=== PATIENT | male | born 1975 | race African-American/Black ===

== ENCOUNTER 2021-04-07 13:51 | Emergency (ER) | payer MEDICAID ==
[~2021-04-07] VITALS: Ht 180.3 cm; Wt 102.5 kg
[2021-04-07 15:10] VITALS: BP 127/97
== END 2021-04-07 16:27 | disposition home or self-care (01) ==
LOC: ER 13:51
DX: L08.9 Local infection of the skin and subcutaneous tissue, unspecified (principal)

== ENCOUNTER 2025-02-14 16:05 | Emergency (ER) | payer MEDICAID, OTHER ==
[~2025-02-14] VITALS: Ht 180.3 cm; Wt 77.9 kg
[2025-02-14 16:36] VITALS: BP 123/93; PULSE 63; RESP 20; TEMP 98.2; O2SAT 98
[2025-02-14] MEDS ORDERED: MECL12.586 PO (17:46)
--- NOTE | 2025-02-14 17:46 | ED.PDOC ---
HPI (NEURO) HPI Comments 49 year old M presents for URI symptoms with intermittent dizziness Symptoms started 3-4 days ago Denies fevers chills night sweats unintentional weight loss Denies persistent chest pain, shortness of breath, leg swelling Denies history of asthma nor any breathing conditions Denies history of pneumonia Denies recent international travel Chief Complaint: Flu like Time Seen by MD: 16:28 Reviewed Notes: Nurses Notes, Medications, Allergies Information Source: Patient Mode of Arrival: Ambulatory Past Medical History PAST MEDICAL HISTORY: Denies Surgical History: Denies all surgeries Family History Family History: Reviewed,noncontributory to illness Social History Smoker: Non-Smoker Lives In: Home All Other Systems: Reviewed and Negative (Per HPI) Physical Exam General Appearance: No Apparent Distress, Normal HEENT: Normal ENT Inspection, Pharynx Normal, TMs Normal Neck: Full Range of Motion, Non-Tender, Normal, Normal Inspection Respiratory: Chest Non-Tender, Lungs Clear, No Accessory Muscle Use, No Respiratory Distress, Normal Breath Sounds Cardiovascular: No Edema, No JVD, No Murmur, No Gallop, Normal Peripheral Pulses, Regular Rate/Rhythm Breast Exam: Deferred Gastrointestinal: No Organomegaly, Non Tender, No Pulsatile Mass, Normal Bowel Sounds, Soft Genitalia: Deferred Pelvic: Deferred Rectal: Deferred Extremities: No calf tenderness, Normal capillary refill, Normal inspection, Normal range of motion, Non-tender, No pedal edema Musculoskeletal : Apperance: Normal Neurologic: Alert, advertising account manager II-XII nml as Tested, No Motor Deficits, Normal Affect, Normal Mood, No Sensory Deficits Cerebellar Function: Normal Reflexes: Normal Skin: Dry, Normal Color, Warm Lymphatic: No Adenopathy Was a procedure done? Was a procedure done?: No Differential Diagnosis (SZ) Seizure: Other X-Ray, Labs, Meds, VS Vital Signs Date Time Temp Pulse Resp B/P (MAP) Pulse Ox O2 Delivery O2 Flow Rate FiO2 02/14/25 16:36 98.2 63 20 123/93 (103) 98 98.2 02/14/25 16:29 98.2 63 20 123/93 (103) 98 98.2 02/14/25 16:18 64 Lab Test 02/14/25 16:22 Range/Units POC Glucose 115 H 70-106 mg/dl X-Ray, Labs, Meds, VS Comment History and physical consistent with vertigo and peripheral etiology- specifically BPPV Neuro examination normal. Vital signs stable Meclizine as needed Patient instructed in performance of Margarita maneuver Recommending patient to sleep in a reclining position for the next night or so and to be aware of head positioning for the next week Return precautions given Symptoms not improving Any symptoms of facial drooping or limb weakness or any sign of stroke Patient is stable for discharge at this time. External notes reviewed. Test results and diagnostic imaging interpreted. All diagnostic findings, discharge care, education and instructions provided Follow-up with PCP in 2 to 3 days Patient verbalized understanding and agreed to treatment plan Vital signs stable, afebrile, no acute distress noted Patient ambulatory with strong steady gait Advised to return precautions for any new or worsening symptoms, return to ER immediately for re-evaluation Patient is aware that the purpose of this visit was for an acute medical emergency requiring emergent stabilization. Chronic conditions, including malignancies have not been ruled out. Patient is instructed to follow up with PCP as directed and discharge instructions for continued care and workup. If unable to arrange follow-up, patient is to return to the emergency department for reassessment. Patient (parent or legal guardian if applicable) was given verbal and written discharge instructions and acknowledges understanding. Time of 1ST Reevaluation: 17:45 Reevaluation 1ST: Improved Patient Education/Counseling: Diagnosis, Treatment Family Education/Counseling: Diagnosis, Treatment Departure 1 Departure Time of Disposition: 17:45 Impression: Primary Impression: Vertigo Additional Impression: BPPV (benign paroxysmal positional vertigo) Qualified Codes: H81.10 - Benign paroxysmal vertigo, unspecified ear Disposition: HOME / SELF CARE / HOMELESS Condition: Stable e-Prescriptions Meclizine Hcl (Meclizine Hcl) 12.5 Mg Tab 1 TAB PO TID for 30 Days, #90 TAB 0 Refills Prov: EVENS PALACIO NP 02/14/25 Critical Care Note Critical Care Time?: No Stability Stability form required: No Heart Score Heart Score: Heart Score Response (Comments) Value History N/A 0 EKG N/A 0 Age N/A 0 Risk Factors N/A 0 Troponin N/A 0 Total 0 EVENS PALACIO NP Feb 14, 2025 17:46
--- NOTE | 2025-02-14 18:50 | ECG ---
[facility] Test Date: 2025-02-14 Test Time: 16:18:03 Pat Name: BENJAMIN IRVIN Department: ER Room: Gender: M Police Clerk: CHERELLE : [id number] Requested By: STEVEN FERNANDEZ Order Number: [id number] Reading MD: Allan Stacy Measurements Intervals [place] Rate: 64 P: 71 ND: 155 QRS: 74 QRSD: 64 T: -18 QT: 371 QTc: 383 Interpretive Statements Sinus rhythm Nonspecific T abnormalities, inferior leads Electronically Signed On 02-15-2025 14:11:29 PDT by Allan Stacy Please click the below link to view image of tracing.
== END 2025-02-14 17:50 | disposition home or self-care (01) ==
LOC: ER 16:05
DX: H81.10 Benign paroxysmal vertigo, unspecified ear (principal)
CPT/HCPCS: 82947; 82962; 93005